=== PATIENT | female | born 1955 | race Caucasian/White ===

== ENCOUNTER → 2023-06-30 | Outpatient (CLI) | payer MEDICARE ==
--- NOTE | 2023-06-30 16:12 | US ---
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 Indirect Doppler criteria was utilized. FINDINGS: EXAM MEASUREMENTS: RIGHT: Peak Systolic Velocity (PSV) cm/sec ----- Right CCA: 105.5 ----- Right ICA: 117.1 ----- Right ECA: 128.8 ICA/CCA ratio: 1.1 RIGHT: End Diastole cm/sec ----- Right CCA: 24.1 ----- Right ICA: 38.7 ----- Right ECA: 25.6 LEFT: Peak Systolic Velocity (PSV) cm/sec ----- Left CCA: 112.8 ----- Left ICA: 125.8 ----- Left ECA: 89.5 ICA/CCA ratio: 1.1 LEFT: End Diastole cm/sec ----- Left CCA: 21.2 ----- Left ICA: 37.2 ----- Left ECA: 0 VERTEBRALS (direction of flow): Right Vertebral: Antegrade Left Vertebral: Antegrade Rhythm: Normal There is visible plaque seen within the carotid bulb on the right side as well as within the internal carotid artery which is [id number]. IMPRESSION: 1. No evidence of hemodynamically significant stenosis. Borderline elevated velocities within the int ernal carotid arteries bilaterally. 2. Carotid plaque on the right side as above. Criteria for Assigning % of Stenosis / Diameter reduction (Estimation based on the indirect measurements of the internal carotid artery velocities (ICA PSV). 1. Normal (no stenosis)=ICA PSV < 125 cm/s: ratio < 2.0: ICA EDV<40 cm/s. 2. Less than 50% stenosis=ICA PSV < 125 cm/s: ratio < 2.0: ICA EDV<40 cm/s. 3. 50 to 69% stenosis=ICA PSV of 125 to 230 cm/s: ration 2.0 ? 4.0: ICA EDV 40-100 cm/s. 4. Greater than 70% stenosis to near occlusion= ICA PSV > 230 cm/s: ratio > 4.0: ICA EDV > 100 cm/s. 5. Near occlusion= ICA PSV velocities may be low or undetectable: variable ratio and ICA EDV. 6. Total occlusion=unable to detect flow.
--- NOTE | 2023-07-01 00:10 | CA ---
Transthoracic Echo Report Name: Rossy Moody Age: 68 Gender: F : 1955 Exam Date: 06/30/2023 14:56 Exam Location: [place] [facility] Ht (in): 68 Wt (lb): 175 Ordering Physician: Roseline Bender MD Attending/Referring Phys: Roseline Bender MD Information Security Officer Lucie Sims, [facility] Procedure CPT: Indications: I35.8 ORTIC SCLEROSIS I65.23 CAROTID STENOSIS Cardiac Hx: Technical Quality: Good Contrast 1: Total Dose (mL): Contrast 2: Total Dose (mL): MEASUREMENTS (Male / Female) Normal Values 2D ECHO LV Diastolic Diameter PLAX 4.1 cm 4.2 - 5.9 / 3.9 - 5.3 cm LV Systolic Diameter PLAX 2.8 cm IVS Diastolic Thickness 1.0 cm 0.6 - 1.0 / 0.6 - 0.9 cm LVPW Diastolic Thickness 1.0 cm 0.6 - 1.0 / 0.6 - 0.9 cm LV Relative Wall Thickness 0.5 RV Internal Dim ED PLAX 3.0 cm LA Systolic Diameter LX 3.3 cm 3.0 - 4.0 / 2.7 - 3.8 cm LV Diastolic Volume MOD 4C 64.8 cm??? LV Systolic Volume MOD 4C 27.1 cm??? LV Ejection Fraction MOD 4C 58.1 % LV Cardiac Index MOD 4C 1493.0 cm???/min???m??? LV Diastolic Length 4C 7.9 cm LV Systolic Length 4C 6.3 cm LV Diastolic Volume MOD 2C 72.6 cm??? LV Systolic Volume MOD 2C 29.7 cm??? LV Ejection Fraction MOD 2C 59.0 % LV Cardiac Index MOD 2C 1700.2 cm???/min???m??? LV Diastolic Length 2C 8.0 cm LV Systolic Length 2C 6.3 cm M-MODE Aortic Root Diameter MM 2.9 cm LA Systolic Diameter MM 3.0 cm LA Ao Ratio MM 1.0 DOPPLER AV Peak Velocity 121.5 cm/s AV Peak Gradient 5.9 mmHg Mitral E Point Velocity 76.7 cm/s Mitral A Point Velocity 79.9 cm/s Mitral E to A Ratio 1.0 MV Deceleration Time 328.0 ms MV E' Velocity 8.5 cm/s Mitral E to MV E' Ratio 9.0 FINDINGS Left Ventricle Left ventricular ejection fraction is estimated at 55-60 %. Left ventricular cavity size normal. Mildly increased septal wall thickness. Right Ventricle Normal right ventricular size. Unable to estimate the right ventricular systolic pressure. Right Atrium Normal right atrial size. Left Atrium Normal left atrial size. Mitral Valve Structurally normal mitral valve. No mitral stenosis, regurgitation or prolapse. Aortic Valve Trileaflet aortic valve. No aortic valve stenosis or regurgitation. Tricuspid Valve Structurally normal tricuspid valve. No tricuspid stenosis, regurgitation or prolapse. Pulmonic Valve Structurally normal pulmonic valve. Trace pulmonic regurgitation. Pericardium No pericardial effusion. Aorta Normal size aortic root and proximal ascending aorta. CONCLUSIONS Left ventricular ejection fraction 55-60% Mild increased left ventricular wall thickness No mitral regurgitation No tricuspid regurgitation No pericardial effusion Previewed by: Dr. Jude Calderon DO (Electronically Signed) Final Date: 01 July 2023 00:09
== END | disposition home or self-care (01) ==
LOC: RADECHMAIN 14:50
PROVIDERS: ATTEND Internal Medicine
DX: I35.8 Other nonrheumatic aortic valve disorders (principal); I65.21 Occlusion and stenosis of right carotid artery
CPT/HCPCS: 93306; 93880